=== PATIENT | female | born 1985 | race Caucasian/White ===

== ENCOUNTER 2016-12-29 17:10 | Emergency (ER) | payer OTHER ==
--- NOTE | ~2016-12-29 | CT4 ---
[facility] A Service of [facility] RADIOLOGY TEXT RESULTS PATIENT: BROCK ZABALA LOCATION: [facility] : 81 UNIT #: [id number] AGE: [address]: Sherice Mckeon MD SEX: F ORDER DR: [id number] [facility] [address] [place], [place] [address] [id number] E MR#: [id number] Acc #: [id number] NAME: BROCK ZABALA : 1985 SEX: F STUDY DATE/TIME: 12/29/2016 18:56 UNIT: ANGELA ROOM: STUDY DESCRIPTION: CT Abd and Pelv Wo Cont Attending Physician: Sherice Mckeon M.D. Ordering Physician: Keny Luong M.D. Primary Care Physician: [facility] IMAGING REPORT This report is preliminary unless electronic signature is present EXAM CT abdomen and pelvis without contrast 12/29/2016 1856 hours HISTORY 31-year-old woman with right lower quadrant pain with difficulty urinating and defecating for 5 months since section. COMPARISON CT abdomen and pelvis 02/28/2011 TECHNIQUE Helical noncontrasted images were obtained from the lung bases through the pubic symphysis without oral or intravenous contrast. Sagittal and coronal reconstructions were performed. Total exam DLP 1612 mGy-cm. This CT exam was performed with one or more of the following radiation dose reduction techniques: Automatic exposure control, adjustment of mA and/or kV according to patient size, and iterative reconstruction. FINDINGS Images through the lung bases are clear. There is stable linear scar in the right middle lobe. There are no effusions. Images through the abdomen demonstrate diffuse low attenuation of the liver relative to the spleen consistent with fatty infiltration. The spleen, pancreas, gallbladder, bile ducts, adrenal glands and kidneys are normal. The abdominal aorta is normal in caliber. The stomach is nondistended. There is no gastric wall thickening. The patient has developed marked thinning of the rectus fascia inferior to the umbilicus with infraabdominal panniculus containing multiple loops of small bowel extending inferiorly to the level of the pubic symphysis. There is no true herniation through the rectus fascia. The area of weakening measures up to 8.6 cm cephalocaudad. The surrounded panniculus STS. [facility] A Service of [facility] RADIOLOGY TEXT RESULTS PATIENT: BROCK ZABALA LOCATION: [facility] : 81 UNIT #: [id number] AGE: [address]: Sherice Mckeon MD SEX: F ORDER DR: measures 20.7 cm transverse by 9.7 cm anterior to posterior. There is no bowel obstruction or incarceration. The colon is not involved. There is no colonic distension or increased amount of stool seen. The bladder is distended. The uterus appears normal. The ovaries are normal. There is no free fluid. IMPRESSION As compared to the CT scan of 02/28/2011, the patient has developed an area of marked thinning of the anterior rectus fascia in the infraumbilical region through which a large amount of omental fat and multiple loops of small bowel protrude into an abdominal panniculus measuring up to 20.7 cm transverse by 9.7 cm anterior to posterior by approximately 16.6 cm cephalocaudad. The small bowel loops within this panniculus descend to the level of the pubic symphysis and are most likely palpable in the midline. There is no incarceration, small bowel or colonic wall thickening. No bowel extends into this panniculus and there is no evidence of constipation or distension of the colon. STAT * RESULT Dictated by... Madison Young M.D. THIS IS AN ELECTRONICALLY VERIFIED REPORT Madison Young M.D. at 12/29/2016 9:01 PM TANGELA/jax TD: 12/29/2016 20:00 JOB #: [id number] MEDICAL IMAGING REPORT Page 1 of 1 COPY
[~2016-12-29 17:10] MED LIST: ALBUTEROL17 GM; DEPAKOTE; PROZAC; TOPAMAX
[2016-12-29 17:40] LABS: BASOPHIL% 0.3 % (0-2.5); EOSINOPHIL# 0.1 X10e3 (0-0.7); EOSINOPHIL% 0.8 % (0.0-7.0); HEMATOCRIT 43.1 % (35.0-45.0); HEMOGLOBIN 14.5 gm/dL (12.0-16.0); LYMPHOCYTE# 3.2 X10e3 (1.0-3.5); LYMPHOCYTE% 38.1 % (17.0-45.0); MEAN CELL VOLUME 83.3 FL (83-96); MEAN CORPUSCULAR HGB CONC 33.7 g/dL (30-36); MEAN PLATELET VOLUME 8.4 FL (6.5-11.5); MONOCYTE# 0.5 X10e3 (0-1.0); MONOCYTE% 6.5 % (3.0-12.0); NEUTROPHIL# 4.6 X10e3 (1.5-7.1); NEUTROPHIL% 54.3 % (40-75); PLATELET COUNT 265 X10e3 (140-420); RED BLOOD COUNT 5.18 X10e (3.90-5.30); RED CELL DISTRIBUTION WIDTH 15.2 % (11.0-15.5); WHITE BLOOD COUNT 8.4 X10e3 (4.0-10.5)
[2016-12-29 17:42] LABS: DIFF IND NO
[2016-12-29 18:06] LABS: ALBUMIN SERUM 4.1 g/dL (3.5-5.0); BILIRUBIN, DIRECT 0.1 mg/dL (0.0-0.2); BILIRUBIN,INDIRECT 0.5 mg/dL (0.0-0.9); BILIRUBIN,TOTAL 0.6 mg/dL (0.2-2.0); BUN/CREATININE RATIO 18.57; CALCIUM SERUM 9.1 mg/dL (8.4-10.2); CREATININE SERUM 0.7 mg/dL (0.6-1.4); GLOM FILT RATE Estimated 113.8 mL/min (>60); POTASSIUM 4.5 mmol/L (3.5-5.1); PROTEIN TOTAL SERUM 7.6 g/dL (6.0-8.3)
[2016-12-29 19:53] LABS: URINE SOURCE CLEAN CATCH
[2016-12-29 19:59] LABS: URINE APPEARANCE CLEAR; URINE BILIRUBIN NEG (NEG); URINE BLOOD NEG (NEG); URINE COLOR YELLOW; URINE GLUCOSE >1000 MG/DL (NEG); URINE KETONE TRACE (NEG); URINE LEUKOCYTE ESTERASE NEG (NEG); URINE NITRATE NEG (NEG); URINE PROTEIN NEG (NEG); URINE SPECIFIC GRAVITY 1.046 (1.003-1.035); URINE UROBILINOGEN 0.2 MG/DL (NEG)
[2016-12-29 20:03] LABS: CULTURE INDICATED? NO
== END 2016-12-29 21:54 | disposition home or self-care (01) ==
LOC: CED 17:10
PROVIDERS: Emergency Medicine
DX: R10.31 Right lower quadrant pain (principal); E11.9 Type 2 diabetes mellitus without complications; Z88.0 Allergy status to penicillin; Z88.8 Allergy status to other drugs, medicaments and biological substances
CPT/HCPCS: 36415; 74176; 80048; 80076; 81003; 82150; 83690; 84703; 85025; 96361; 96374; 99284; J0500; J1885

== ENCOUNTER → 2017-01-16 | Outpatient (CLI) | payer OTHER ==
[~2017-01-16] MED LIST changes: +ADVIL200 M1; +BACTRIM DS TAB1 EACH; +HYDROCODON-ACE1 EAC9 PO; +PAIN & FEVER325 MG PO; +PHENERGAN25 M1 PO; +T:SLIM1 EAC1 SQ
--- NOTE | ~2017-01-16 | EKG ---
PATIENT: BROCK ZABALA UNIT #: [id number] Ventricular Rate: 80 BPM Atrial Rate: 80 BPM P-R Interval: 134 ms QRS Duration: 86 ms Q-T Interval: 384 ms QTC Calculation(Bezet): 442 ms P [place]: 58 degrees Calculated R [place]: 43 degrees Calculated T [place]: 38 degrees Diagnosis Line: Normal sinus rhythm Diagnosis Line: Normal ECG Diagnosis Line: When compared with ECG of 02-OCT-2014 08:58, Diagnosis Line: No significant change was found Diagnosis Line: Confirmed by LYNDSAY ACEVEDO MD ([id number]) on Diagnosis Line: 01/17/2017 11:05:14 PM INTERPRETING MD: EVA
[2017-01-16 13:18] LABS: BUN/CREATININE RATIO 18.33; CALCIUM SERUM 9.1 mg/dL (8.4-10.2); CREATININE SERUM 0.6 mg/dL (0.6-1.4); GLOM FILT RATE Estimated 119.8 mL/min (>60); POTASSIUM 4.3 mmol/L (3.5-5.1)
== END | disposition home or self-care (01) ==
LOC: CAMB 10:55
PROVIDERS: Surgery
DX: Z01.818 Encounter for other preprocedural examination (principal); K43.9 Ventral hernia without obstruction or gangrene
CPT/HCPCS: 36415; 80048; 93005

== ENCOUNTER 2017-01-23 05:47 | Inpatient (IN) | payer OTHER ==
--- NOTE | ~2017-01-23 | OR ---
Unit #: [id number] #: [id number] Patient: BROCK ZABALA [id number] [address] [place], [place] [address] [id number] I MR#: [id number] NAME: BROCK ZABALA ROOM: 477 Date of Procedure: 01/23/2017 Admission Date: 01/23/2017 Surgeon: Lawrence Zhang Jr., M.D. : 1985 Attending Physician: Lawrence Zhang Jr., M.D. Referring Physician: Lawrence Zhang Jr., M.D. Primary Care Physician: [facility] OPERATIVE REPORT INDICATIONS FOR PROCEDURE The patient is a 31-year-old obese white female, who has had previous surgery and developed a large lower midline abdominal ventral incisional hernia, which was incarcerated. It has been causing discomfort and she wanted it repaired and is brought in at her request for repair of this laparoscopically, possible open. The patient understands the procedure including the risks, including that of recurrence, infection, chronic pain, and intra-abdominal organ injury, and consents. PREOPERATIVE DIAGNOSIS Large lower midline incarcerated ventral incisional hernia. POSTOPERATIVE DIAGNOSES Large lower midline incarcerated ventral incisional hernia, noting approximately 10 cm defect with incarcerated bowel loops and omentum within it. ANESTHESIA General with endotracheal intubation and 0.5% Marcaine with epinephrine locally. COLLIERY CLERK Lori Perez. PROCEDURES PERFORMED Laparoscopic lysis of adhesions requiring an hour with reduction of her hernia and panniculectomy with removal of the panniculus of her lower abdomen that corresponded to the area of the hernia and laparoscopic ventral hernia repair using an 8 x 10 inch Ventralight mesh. DESCRIPTION OF PROCEDURE The patient was positioned in supine position. After being anesthetized and intubated, she was prepped and draped in routine fashion for laparoscopic ventral hernia repair, possible open. A 5-mm Optiview was introduced in the left upper quadrant abdominal wall area and the camera was then introduced. There was no evidence of any injury related to the introduction of the port. The abdomen was inflated with CO2 gas and intra-abdominal exploration was carried out. The patient was noted to have a 5 bowel loops up within the large hernia with approximately 10 cm defect in the omentum and this area as well. A 5-mm port was placed in the right lower quadrant abdominal wall area and a 5-mm port was placed in the left upper and 12-mm port in the left lower abdominal wall area. At Unit #: [id number] #: [id number] Patient: BROCK ZABALA this point, meticulous dissection was performed, removing the bowel loops from the hernia and lysing omental adhesions with Endo Pam. This was done very carefully and took approximately a 1 hour and 20 minutes. After this was reduced, the area was checked, it was felt that the patient would need an abdominoplasty along with the hernia repair. An elliptical incision was made around the stretched skin in the lower abdomen along the area of the panniculus and this was carried all the way around to the other side, carried down through subcutaneous tissue with the Bovie cautery and down to the attenuated fascia. The hernia sac was then excised with a Bovie cautery and there was a large fascial defect. The small bowel was checked and run and there was no evidence of any small bowel injuries or leaks. After this was complete, the small bowel was reduced back into the abdomen. The abdomen was copiously irrigated with saline solution and the midline was closed with interrupted 0 Ethibond sutures using modified Aníbal-Webster type stitches. The wound was irrigated and after hemostasis achieved with Bovie cautery, a 10 mm Jose-Carrion drain was brought through separate stab wound and placed in the deeper aspect of the wound. Deeper subcutaneous tissue was approximated with continuous 2-0 Vicryl suture. The skin edges were approximated with stainless-steel skin clips and skin stapling device. At this point, the abdomen was reinflated and an 8 x 10 inch Ventralight mesh was tacked in 4 corners, soaked in antibiotic solution, placed intra-abdominally, using the Endo Close technique, it was pulled up against the anterior abdominal wall with excellent coverage of the repaired abdominal wall in the lower midline. It should be noted that the bladder was initially dissected free of the fascia in the area while the abdomen was open. After the mesh was secured with absorbable SecureStrap circumferentially, the sutures holding it up were then lysed. There was excellent coverage of the repair defect and excellent anchoring of the mesh. After hemostasis was checked for and noted intra-abdominally, the ports removed. An 11-mm port site was covered by the mesh, so was not needing repair and the other port sites was very small. After the CO2 was expressed from the abdomen, the ports were removed. There was no evidence of any bleeding from the port sites. The port sites were injected with 0.5% Marcaine with epinephrine locally. At this point, the skin edges were approximated with stainless-steel skin clips and skin stapling device. There was a 10 mm Jose-Carrion drain brought out through the lower abdominal wall at the time of the open procedure. This was tacked to the skin with 0 silk suture. Sterile dressings were applied externally. Estimated blood loss less than 250 mL. The patient received less than 3000 mL crystalloid solution during the procedure. Sponges and instrument counts were correct x3. There was one Jose-Carrion drain used in the subcutaneous tissue noted above and no complications. The patient was taken to the recovery room with stable vital signs in satisfactory condition. Dictated by... Lawrence Zhang Jr., MMariza GRAHAM/jelena TD: 01/23/2017 23:58 JOB #: [id number] Unit #: [id number] #: [id number] Patient: BROCK ZABALA OPERATIVE REPORT Page 1 of 1 X Lawrence Zhang MD X PROCEDURE OPERATIVE NOTE
--- NOTE | ~2017-01-23 | DS ---
Unit #: [id number] #: [id number] Patient: BROCK ZABALA [id number] [address] [place], [place] [address] [id number] I MR#: [id number] NAME: BROCK ZABALA ROOM: 47 Age: 31 Sex: F Admission Date: 01/23/2017 : 1985 Discharge Date: 01/27/2017 Attending Physician: Lawrence Zhang Jr., M.D. Referring Physician: Lawrence Zhang Jr., M.D. Primary Care Physician: [facility] DISCHARGE SUMMARY PRINCIPAL DIAGNOSIS Ventral hernia. OPERATIONS AND PROCEDURES Laparoscopic repair of ventral hernia with panniculectomy. DISCHARGE INSTRUCTIONS 1. No lifting for 4 weeks. 2. No driving for 2 weeks. 3. Keep incision dry for 5 days. 4. Follow with Dr. Zhang on Friday. MEDICATIONS Prescription for Cataumet and Phenergan given. Milk of Magnesia as needed for constipation. DISCHARGE DIET Diet of choice. CONDITION AT DISCHARGE Satisfactory. CHIEF COMPLAINT/HISTORY OF PRESENT ILLNESS Patient is a 31-year-old white female who presented at this time for a ventral hernia. For complete history and physical, please refer to the chart. HOSPITAL COURSE Patient was admitted and taken to the operating room where a laparoscopic ventral hernia repair was performed by Dr. Zhang, followed by a panniculectomy. Over the next several days the patient had her diet slowly advanced and had pain control changed from IV to oral pain medication. She was discharged home in satisfactory condition on postop day number 4 after all instructions were given. She will be followed by Dr. Zhang in the office for drain removal in 2 days. Dictated by... Serjio Monsalve M.D. SEMAJ/jennifer TD: 01/27/2017 08:51 Unit #: [id number] #: [id number] Patient: BROCK ZABALA JOB #: [id number] DISCHARGE SUMMARY Page 1 of 1 X Serjio Monsalve MD X DISCHARGE SUMMARY
[~2017-01-23 05:47] MED LIST changes: -ADVIL200 M1; -BACTRIM DS TAB1 EACH; -HYDROCODON-ACE1 EAC9 PO; -PAIN & FEVER325 MG PO; -PHENERGAN25 M1 PO; -T:SLIM1 EAC1 SQ
[2017-01-23] MEDS ORDERED: BACTRIM DS TAB1 EACH (11:45)
[2017-01-23] MEDS ORDERED: T:SLIM1 EAC1 SQ (11:46)
[2017-01-23] MEDS ORDERED: ADVIL200 M1 (11:47)
[2017-01-24 03:23] LABS: HEMATOCRIT 35.6 % (35.0-45.0); HEMOGLOBIN 11.9 gm/dL (12.0-16.0); MEAN CELL VOLUME 83.9 FL (83-96); MEAN CORPUSCULAR HEMOGLOBIN 27.9 PG (28-34); MEAN CORPUSCULAR HGB CONC 33.3 g/dL (30-36); MEAN PLATELET VOLUME 8.3 FL (6.5-11.5); RED BLOOD COUNT 4.25 X10e (3.90-5.30); RED CELL DISTRIBUTION WIDTH 15.6 % (11.0-15.5); WHITE BLOOD COUNT 11.6 X10e3 (4.0-10.5)
[2017-01-24 03:47] LABS: ALBUMIN SERUM 3.3 g/dL (3.5-5.0); BILIRUBIN,TOTAL 1.2 mg/dL (0.2-2.0); BUN/CREATININE RATIO 18.33; CALCIUM SERUM 8.3 mg/dL (8.4-10.2); CREATININE SERUM 0.6 mg/dL (0.6-1.4); GLOM FILT RATE Estimated 119.8 mL/min (>60); POTASSIUM 4.3 mmol/L (3.5-5.1); PROTEIN TOTAL SERUM 6.2 g/dL (6.0-8.3)
[2017-01-25 03:12] LABS: BASOPHIL% 0.4 % (0-2.5); EOSINOPHIL% 0.2 % (0.0-7.0); HEMATOCRIT 35.7 % (35.0-45.0); HEMOGLOBIN 11.9 gm/dL (12.0-16.0); LYMPHOCYTE# 2.1 X10e3 (1.0-3.5); LYMPHOCYTE% 17.1 % (17.0-45.0); MEAN CELL VOLUME 85.1 FL (83-96); MEAN CORPUSCULAR HEMOGLOBIN 28.4 PG (28-34); MEAN CORPUSCULAR HGB CONC 33.4 g/dL (30-36); MEAN PLATELET VOLUME 8.3 FL (6.5-11.5); MONOCYTE# 0.9 X10e3 (0-1.0); MONOCYTE% 7.2 % (3.0-12.0); NEUTROPHIL% 75.1 % (40-75); PLATELET COUNT 245 X10e3 (140-420); RED BLOOD COUNT 4.19 X10e (3.90-5.30); RED CELL DISTRIBUTION WIDTH 15.4 % (11.0-15.5)
[2017-01-25 03:15] LABS: DIFF IND NO
[2017-01-25 04:02] LABS: ALBUMIN SERUM 3.1 g/dL (3.5-5.0); BILIRUBIN,TOTAL 1.5 mg/dL (0.2-2.0); BUN/CREATININE RATIO 13.33; CALCIUM SERUM 8.2 mg/dL (8.4-10.2); CREATININE SERUM 0.6 mg/dL (0.6-1.4); GLOM FILT RATE Estimated 119.8 mL/min (>60); POTASSIUM 4.3 mmol/L (3.5-5.1); PROTEIN TOTAL SERUM 5.9 g/dL (6.0-8.3)
[2017-01-27 03:17] LABS: EOSINOPHIL# 0.1 X10e3 (0-0.7); EOSINOPHIL% 1.6 % (0.0-7.0); HEMATOCRIT 29.4 % (35.0-45.0); HEMOGLOBIN 9.7 gm/dL (12.0-16.0); LYMPHOCYTE# 1.9 X10e3 (1.0-3.5); LYMPHOCYTE% 22.6 % (17.0-45.0); MEAN CELL VOLUME 86.8 FL (83-96); MEAN CORPUSCULAR HEMOGLOBIN 28.8 PG (28-34); MEAN CORPUSCULAR HGB CONC 33.1 g/dL (30-36); MEAN PLATELET VOLUME 7.5 FL (6.5-11.5); MONOCYTE# 0.8 X10e3 (0-1.0); MONOCYTE% 9.3 % (3.0-12.0); NEUTROPHIL# 5.5 X10e3 (1.5-7.1); NEUTROPHIL% 66.5 % (40-75); PLATELET COUNT 269 X10e3 (140-420); RED BLOOD COUNT 3.39 X10e (3.90-5.30); WHITE BLOOD COUNT 8.3 X10e3 (4.0-10.5)
[2017-01-27 03:19] LABS: DIFF IND NO
[2017-01-27] MEDS ORDERED: PAIN & FEVER325 MG PO (07:27)
[2017-01-27] MEDS ORDERED: HYDROCODON-ACE1 EAC9 PO (07:27)
[2017-01-27] MEDS ORDERED: PHENERGAN25 M1 PO (07:28)
== END 2017-01-27 09:00 | disposition home or self-care (01) | DRG 337 ==
LOC: CSUR 05:47 → C4C 11:35
PROVIDERS: Surgery
PROC: 0WUF4JZ Supplement Abdominal Wall with Synthetic Substitute, Percutaneous Endoscopic Approach (ICD-10-PCS; 2017-01-23)
PROC: 0DNT4ZZ (ICD-10-PCS; principal; 2017-01-23 07:30)
DX: K43.0 Incisional hernia with obstruction, without gangrene (principal); I10 Essential (primary) hypertension; E11.9 Type 2 diabetes mellitus without complications; Z88.0 Allergy status to penicillin; Z88.8 Allergy status to other drugs, medicaments and biological substances; F41.9 Anxiety disorder, unspecified; G40.909 Epilepsy, unspecified, not intractable, without status epilepticus; I25.10 Atherosclerotic heart disease of native coronary artery without angina pectoris; Z95.1 Presence of aortocoronary bypass graft; Z83.3 Family history of diabetes mellitus; Z82.49 Family history of ischemic heart disease and other diseases of the circulatory system; Z81.1 Family history of alcohol abuse and dependence; Z82.5 Family history of asthma and other chronic lower respiratory diseases; Z81.8 Family history of other mental and behavioral disorders; E66.9 Obesity, unspecified; Z68.38 Body mass index [BMI] 38.0-38.9, adult
CPT/HCPCS: 80053; 82947; 84703; 85025; 85027; 88304; 94760; C1781; J0131; J0330; J1170; J1650; J1815; J2250; J2270; J2405; J2550; J2710; J3010; J3370

== ENCOUNTER 2017-01-28 19:54 | Emergency (ER) | payer OTHER ==
[~2017-01-28 19:54] MED LIST changes: +ADVIL200 M1; +BACTRIM DS TAB1 EACH; +HYDROCODON-ACE1 EAC9 PO; +PAIN & FEVER325 MG PO; +PHENERGAN25 M1 PO; +T:SLIM1 EAC1 SQ
[2017-01-28 22:27] LABS: BASOPHIL% 0.5 % (0-2.5); EOSINOPHIL# 0.1 X10e3 (0-0.7); EOSINOPHIL% 1.6 % (0.0-7.0); HEMATOCRIT 30.9 % (35.0-45.0); HEMOGLOBIN 10.1 gm/dL (12.0-16.0); LYMPHOCYTE# 1.7 X10e3 (1.0-3.5); LYMPHOCYTE% 20.6 % (17.0-45.0); MEAN CELL VOLUME 87.2 FL (83-96); MEAN CORPUSCULAR HEMOGLOBIN 28.4 PG (28-34); MEAN CORPUSCULAR HGB CONC 32.6 g/dL (30-36); MEAN PLATELET VOLUME 7.2 FL (6.5-11.5); MONOCYTE# 0.6 X10e3 (0-1.0); MONOCYTE% 7.5 % (3.0-12.0); NEUTROPHIL# 5.9 X10e3 (1.5-7.1); NEUTROPHIL% 69.8 % (40-75); PLATELET COUNT 299 X10e3 (140-420); RED BLOOD COUNT 3.54 X10e (3.90-5.30); RED CELL DISTRIBUTION WIDTH 15.5 % (11.0-15.5); WHITE BLOOD COUNT 8.5 X10e3 (4.0-10.5)
[2017-01-28 22:31] LABS: DIFF IND NO
[2017-01-28 22:49] LABS: BUN/CREATININE RATIO 23.33; CALCIUM SERUM 8.8 mg/dL (8.4-10.2); CREATININE SERUM 0.3 mg/dL (0.6-1.4); GLOM FILT RATE Estimated 150.5 mL/min (>60); POTASSIUM 3.8 mmol/L (3.5-5.1)
[2017-01-29 00:58] LABS: URINE SOURCE CLEAN CATCH
[2017-01-29 01:04] LABS: URINE APPEARANCE CLEAR; URINE BILIRUBIN NEG (NEG); URINE BLOOD NEG (NEG); URINE COLOR YELLOW; URINE GLUCOSE >1000 MG/DL (NEG); URINE KETONE 3+ (NEG); URINE LEUKOCYTE ESTERASE TRACE (NEG); URINE NITRATE NEG (NEG); URINE PROTEIN NEG (NEG); URINE SPECIFIC GRAVITY 1.042 (1.003-1.035)
[2017-01-29 01:08] LABS: CULTURE INDICATED? YES; URINE BACTERIA AUWI 2+ (NEGATIVE); URINE SQUAMOUS EPITHELIAL CELL OCC /[HPF]; UWBCS1 AUWI 50-100 (0-5)
== END 2017-01-29 01:55 | disposition home or self-care (01) ==
LOC: CED 19:54
PROVIDERS: Emergency Medicine
DX: N30.00 Acute cystitis without hematuria (principal); G89.18 Other acute postprocedural pain; F32.9 Major depressive disorder, single episode, unspecified; Z98.890 Other specified postprocedural states
CPT/HCPCS: 36415; 80048; 81003; 85025; 87086; 96361; 96374; 96375; 99284; J2270; J2405

== ENCOUNTER 2017-01-29 22:30 | Emergency (ER) | payer OTHER ==
--- NOTE | ~2017-01-29 | EKG ---
PATIENT: BROCK ZABALA UNIT #: [id number] Ventricular Rate: 110 BPM Atrial Rate: 110 BPM P-R Interval: 124 ms QRS Duration: 82 ms Q-T Interval: 354 ms QTC Calculation(Bezet): 479 ms P [place]: 63 degrees Calculated R [place]: 39 degrees Calculated T Edgar: 41 degrees Diagnosis Line: Sinus tachycardia Diagnosis Line: Otherwise normal ECG Diagnosis Line: No previous ECGs available Diagnosis Line: Confirmed by ELIESER SCHUSTER MD ([id number]) on 01/30/2017 Diagnosis Line: 10:04:15 AM INTERPRETING MD: LANDEN WOLFE
[2017-01-30 00:54] LABS: URINE SOURCE CLEAN CATCH
[2017-01-30 00:58] LABS: URINE APPEARANCE CLEAR; URINE BILIRUBIN NEG (NEG); URINE BLOOD 3+ (NEG); URINE COLOR YELLOW; URINE GLUCOSE >1000 MG/DL (NEG); URINE KETONE 3+ (NEG); URINE LEUKOCYTE ESTERASE NEG (NEG); URINE NITRATE NEG (NEG); URINE PROTEIN NEG (NEG); URINE SPECIFIC GRAVITY 1.043 (1.003-1.035)
[2017-01-30 01:02] LABS: CULTURE INDICATED? YES; URINE BACTERIA AUWI 2+ (NEGATIVE); URINE SQUAMOUS EPITHELIAL CELL FEW /[HPF]
[2017-01-30 01:11] LABS: BASOPHIL% 0.2 % (0-2.5); EOSINOPHIL# 0.1 X10e3 (0-0.7); EOSINOPHIL% 1.5 % (0.0-7.0); HEMATOCRIT 29.1 % (35.0-45.0); HEMOGLOBIN 9.7 gm/dL (12.0-16.0); LYMPHOCYTE# 1.9 X10e3 (1.0-3.5); LYMPHOCYTE% 25.3 % (17.0-45.0); MEAN CELL VOLUME 86.7 FL (83-96); MEAN CORPUSCULAR HEMOGLOBIN 28.9 PG (28-34); MEAN CORPUSCULAR HGB CONC 33.4 g/dL (30-36); MEAN PLATELET VOLUME 7.4 FL (6.5-11.5); MONOCYTE# 0.6 X10e3 (0-1.0); MONOCYTE% 8.4 % (3.0-12.0); NEUTROPHIL# 4.9 X10e3 (1.5-7.1); NEUTROPHIL% 64.6 % (40-75); PLATELET COUNT 302 X10e3 (140-420); RED BLOOD COUNT 3.36 X10e (3.90-5.30); RED CELL DISTRIBUTION WIDTH 15.6 % (11.0-15.5); WHITE BLOOD COUNT 7.6 X10e3 (4.0-10.5)
[2017-01-30 01:13] LABS: DIFF IND NO
[2017-01-30 01:30] LABS: ALBUMIN SERUM 2.8 g/dL (3.5-5.0); BILIRUBIN, DIRECT 0.1 mg/dL (0.0-0.2); BILIRUBIN,INDIRECT 0.5 mg/dL (0.0-0.9); BILIRUBIN,TOTAL 0.6 mg/dL (0.2-2.0); CALCIUM SERUM 8.7 mg/dL (8.4-10.2); CREATININE SERUM 0.5 mg/dL (0.6-1.4); GLOM FILT RATE Estimated 127.2 mL/min (>60); POTASSIUM 3.7 mmol/L (3.5-5.1); PROTEIN TOTAL SERUM 6.3 g/dL (6.0-8.3)
== END 2017-01-30 02:20 | disposition home or self-care (01) ==
LOC: CED 22:30
PROVIDERS: Emergency Medicine
DX: N30.00 Acute cystitis without hematuria (principal); G89.18 Other acute postprocedural pain; R10.9 Unspecified abdominal pain; E11.9 Type 2 diabetes mellitus without complications; F41.9 Anxiety disorder, unspecified; Z79.4 Long term (current) use of insulin
CPT/HCPCS: 36415; 80048; 80076; 81003; 82150; 83690; 84703; 85025; 87086; 93005; 96372; 99283; J2270; J2405

== ENCOUNTER 2017-02-12 10:30 | Emergency (ER) | payer OTHER | END 2017-02-12 12:06 | disposition home or self-care (01) | LOC: CED 10:30 | DX: T81.31XA Disruption of external operation (surgical) wound, not elsewhere classified, initial encounter (principal); E11.9 Type 2 diabetes mellitus without complications; Z88.0 Allergy status to penicillin; Z88.8 Allergy status to other drugs, medicaments and biological substances; Z79.4 Long term (current) use of insulin | CPT/HCPCS: 99282 ==

== ENCOUNTER 2017-03-25 17:53 | Emergency (ER) | payer OTHER ==
--- NOTE | ~2017-03-25 | CT2 ---
[facility] A Service of [facility] RADIOLOGY TEXT RESULTS PATIENT: BROCK ZABALA LOCATION: [facility] : 83 UNIT #: [id number] AGE: [address]: Don Villalobos MD SEX: F ORDER DR: [id number] [facility] [address] [place], [place] [address] [id number] E MR#: [id number] Acc #: [id number] NAME: BROCK ZABALA : 1985 SEX: F STUDY DATE/TIME: 03/25/2017 21:17 UNIT: [facility] ROOM: STUDY DESCRIPTION: CT Abd and Pelv W Cont Attending Physician: Don Villalobos M.D. Ordering Physician: Don Villalobos M.D. Primary Care Physician: [facility] IMAGING REPORT This report is preliminary unless electronic signature is present EXAM Abdomen and pelvis CT scan with contrast HISTORY Right flank pain since hernia surgery 7 months ago, worse today. History of seizure disorder, diabetes, cholecystectomy, hernia repair, section. COMMENT CT abdomen and pelvis performed following oral and during the intravenous administration of 100 mL of Isovue-370. Imaging acquired in the axial plane followed by sagittal and coronal reconstructed imaging. This CT exam was performed with one or more of the following radiation dose reduction techniques: automatic exposure control, adjustment of mA and/or kV according to patient size, and iterative reconstruction. Comparison studies from 12/29/2016. There is apparently interval surgery to a hernia to the lower anterior abdominal pelvic wall. The lung bases are clear. There is extensive fatty infiltration of the liver with hepatomegaly and the liver enlargement is probably increased from the examination of 12/29/2016, now about 25 cm in SI dimension. There is some splenic granulomata. The adrenal glands are normal. There is unremarkable appearance to the gallbladder. History provided indicates cholecystectomy but the gallbladder is present. Pancreas is unremarkable. Right kidney and left kidney are within normal limits. There is no abdominal aortic aneurysm. Assessment of the pelvis shows unremarkable appearance to the urinary [facility] A Service of [facility] RADIOLOGY TEXT RESULTS PATIENT: [facility]AL[id number] [birth year] UNIT #: [id number] AGE: [address]: Don Villalobos MD SEX: F ORDER DR: hawa. The adnexa are large bilaterally. Please correlate for any clinical concern for polycystic ovarian disease. This diagnosis would be better pursued with a pelvic ultrasound on a nonemergent basis. There is no free fluid in the pelvis. The appendix is radiographically unremarkable with some contrast and air within it up to about 6 mm in diameter. As noted above there has been interval repair of the known hernia. There is now stranding in the anterior abdominal wall to pelvic fat at the site or surgical repair. No drainable fluid collection is appreciated. The findings could all be postoperative but please correlate for clinical concern for cellulitic change. There does appear to be some overlying skin thickening and this is in the differential. No air bubbles are seen in the soft tissues. There is a small amount of dehiscence of the midline rectus repair at the level of the pelvis with a small amount of fat protruding through it in a right paramedian location. There are no bowel loops within this area. No drainable fluid collection is seen. Nothing to suggest bowel obstruction. No free intraperitoneal air. IMPRESSION 1. Since the study of 12/29/2016 this patient has had repair of a large hernia involving the anterior inferior abdominopelvic wall. There is now soft tissue stranding in the subcutaneous fat and thickening of the overlying skin. This could be postoperative change depending upon how recently the surgery was performed but please evaluate for clinical concern for cellulitis. I do not see evidence for a drainable fluid collection. There is minimal dehiscence right paramedian rectus musculature with fat protruding through it at the lower aspect of the hernia repair. There is no bowel protruding into this. There is no evidence for bowel obstruction. 2. This patient has fatty infiltration of the liver diffusely with hepatomegaly and I believe there is some worsening of hepatomegaly mildly since December. 3. The gallbladder is unremarkable. The patient history given to me is that of cholecystectomy but gallbladder is still present. 4. The appendix is radiographically unremarkable. 5. Bilaterally adnexa are large. This is nonspecific but the possible consideration would be polycystic ovary syndrome. This diagnosis is best pursued with nonemergent pelvic ultrasound. STAT * RESULT Dictated by... Amy Cordon M.D. THIS IS AN ELECTRONICALLY VERIFIED REPORT Amy Cordon M.D. at 03/26/2017 7:52 AM [facility] A Service of [facility] RADIOLOGY TEXT RESULTS PATIENT: BROCK ZABALA [id number] [birth year] UNIT #: [id number] AGE: [address]: Don Villalobos MD SEX: F ORDER DR: HELEN/guerline TD: 03/25/2017 22:05 JOB #: [id number] MEDICAL IMAGING REPORT Page 1 of 1 COPY
[2017-03-25 19:16] LABS: BASOPHIL% 0.3 % (0-2.5); EOSINOPHIL# 0.2 X10e3 (0-0.7); EOSINOPHIL% 1.9 % (0.0-7.0); HEMATOCRIT 39.8 % (35.0-45.0); LYMPHOCYTE# 2.9 X10e3 (1.0-3.5); LYMPHOCYTE% 33.2 % (17.0-45.0); MEAN CORPUSCULAR HEMOGLOBIN 27.1 PG (28-34); MEAN CORPUSCULAR HGB CONC 32.7 g/dL (30-36); MEAN PLATELET VOLUME 8.4 FL (6.5-11.5); MONOCYTE# 0.4 X10e3 (0-1.0); NEUTROPHIL# 5.2 X10e3 (1.5-7.1); NEUTROPHIL% 59.6 % (40-75); PLATELET COUNT 300 X10e3 (140-420); RED BLOOD COUNT 4.79 X10e (3.90-5.30); WHITE BLOOD COUNT 8.7 X10e3 (4.0-10.5)
[2017-03-25 19:24] LABS: DIFF IND NO
[2017-03-25 19:27] LABS: URINE SOURCE CLEAN CATCH
[2017-03-25 19:32] LABS: URINE APPEARANCE CLEAR; URINE BILIRUBIN NEG (NEG); URINE BLOOD NEG (NEG); URINE COLOR YELLOW; URINE GLUCOSE >1000 MG/DL (NEG); URINE KETONE 1+ (NEG); URINE LEUKOCYTE ESTERASE NEG (NEG); URINE NITRATE NEG (NEG); URINE PROTEIN NEG (NEG); URINE SPECIFIC GRAVITY 1.044 (1.003-1.035); URINE UROBILINOGEN 0.2 MG/DL (NEG)
[2017-03-25 19:37] LABS: CALCIUM SERUM 8.9 mg/dL (8.4-10.2); CREATININE SERUM 0.5 mg/dL (0.6-1.4); GLOM FILT RATE Estimated 127.2 mL/min (>60); POTASSIUM 4.1 mmol/L (3.5-5.1)
== END 2017-03-25 22:25 | disposition home or self-care (01) ==
LOC: CED 17:53
PROVIDERS: Emergency Medicine
DX: R10.12 Left upper quadrant pain (principal); E11.65 Type 2 diabetes mellitus with hyperglycemia; Z79.4 Long term (current) use of insulin; Z88.0 Allergy status to penicillin; Z88.8 Allergy status to other drugs, medicaments and biological substances; Z79.899 Other long term (current) drug therapy
CPT/HCPCS: 36415; 74177; 80048; 81003; 82947; 84703; 85025; 96361; 96374; 96375; 99284; J2405; Q9967

== ENCOUNTER 2017-06-10 19:50 | Emergency (ER) | payer OTHER ==
[~2017-06-10] VITALS: Ht 157.5 cm; Wt 90.7 kg
--- NOTE | ~2017-06-10 | CT2 ---
[facility] A Service of [facility] RADIOLOGY TEXT RESULTS PATIENT: BROCK ZABALA LOCATION: [facility] : 81 UNIT #: [id number] AGE: [address]: Sidney Robison MD SEX: F ORDER DR: [id number] [facility] [address] [place], [place] [address] [id number] E MR#: [id number] Acc #: [id number] NAME: BROCK ZABALA : 1985 SEX: F STUDY DATE/TIME: 06/10/2017 22:26 UNIT: [facility] ROOM: STUDY DESCRIPTION: CT Abd and Pelv W Cont Attending Physician: Sidney Robison M.D. Ordering Physician: Sidney Robison M.D. Primary Care Physician: Colette Adam [facility] IMAGING REPORT This report is preliminary unless electronic signature is present EXAM CT scan of the abdomen and pelvis with contrast, 06/10/2017 HISTORY Abdomen pain, nausea, vomiting and diarrhea for 2 days. Left lower quadrant abdominal pain. TECHNIQUE Spiral CT was performed through the abdomen and pelvis following intravenous contrast administration only as per clinician request. This CT exam was performed with one or more of the following radiation dose reduction techniques: automatic exposure control, adjustment of mA and/or kV according to patient size, and iterative reconstruction. FINDINGS ABDOMEN: The exam is limited by the lack of oral contrast. There is diffuse fatty infiltration of the liver. The spleen, pancreas, gallbladder and biliary tree, adrenal glands and kidneys are normal. PELVIS: The gut, mesenteric and kelly structures are normal. There is no free fluid in the abdomen or pelvis. There are postsurgical changes involving the lower anterior abdominal wall. The lung bases are normal. IMPRESSION 1. Exam is limited by the lack of oral contrast. 2. Fatty infiltration of the liver. 3. Postoperative changes involving the lower anterior abdominal wall. Dictated by... Sarthak Santos M.D. THIS IS AN ELECTRONICALLY VERIFIED REPORT [facility] A Service of [facility] RADIOLOGY TEXT RESULTS PATIENT: BROCK ZABALA [id number] [birth year] UNIT #: [id number] AGE: [address]: Sidney Robison MD SEX: F ORDER DR: Sarthak Santos M.D. at 06/11/2017 10:41 AM URIAH/kris TD: 06/11/2017 08:24 JOB #: [id number] MEDICAL IMAGING REPORT Page 1 of 1 COPY
[2017-06-10 20:10] LABS: URINE SOURCE CLEAN CATCH
[2017-06-10 20:16] LABS: BASOPHIL# 0.1 X10e3 (0-0.3); BASOPHIL% 0.6 % (0-2.5); EOSINOPHIL# 0.1 X10e3 (0-0.7); EOSINOPHIL% 1.1 % (0.0-7.0); HEMATOCRIT 40.7 % (35.0-45.0); HEMOGLOBIN 13.7 gm/dL (12.0-16.0); LYMPHOCYTE% 31.7 % (17.0-45.0); MEAN CELL VOLUME 82.7 FL (83-96); MEAN CORPUSCULAR HEMOGLOBIN 27.9 PG (28-34); MEAN CORPUSCULAR HGB CONC 33.8 g/dL (30-36); MEAN PLATELET VOLUME 8.1 FL (6.5-11.5); MONOCYTE# 0.5 X10e3 (0-1.0); NEUTROPHIL# 5.8 X10e3 (1.5-7.1); NEUTROPHIL% 61.6 % (40-75); PLATELET COUNT 265 X10e3 (140-420); RED BLOOD COUNT 4.92 X10e (3.90-5.30); RED CELL DISTRIBUTION WIDTH 16.7 % (11.0-15.5); URINE APPEARANCE CLOUDY; URINE BILIRUBIN NEG (NEG); URINE BLOOD 2+ (NEG); URINE COLOR YELLOW; URINE GLUCOSE >1000 MG/DL (NEG); URINE KETONE 1+ (NEG); URINE LEUKOCYTE ESTERASE NEG (NEG); URINE NITRATE NEG (NEG); URINE PH 5.5 (5-8); URINE PROTEIN NEG (NEG); URINE SPECIFIC GRAVITY 1.046 (1.003-1.035); URINE UROBILINOGEN 0.2 MG/DL (NEG); WHITE BLOOD COUNT 9.4 X10e3 (4.0-10.5)
[2017-06-10 20:18] LABS: CULTURE INDICATED? YES; U HYALINE CASTS AUWI 0-2 /[LPF]; URBCS1 AUWI 0-2 /[HPF] (0-2); URINE BACTERIA AUWI 2+ (NEGATIVE); URINE SQUAMOUS EPITHELIAL CELL FEW /[HPF]; UWBCS1 AUWI 25-50 (0-5)
[2017-06-10 20:31] LABS: DIFF IND NO
[2017-06-10 20:54] LABS: ALBUMIN SERUM 3.8 g/dL (3.5-5.0); BILIRUBIN, DIRECT 0.1 mg/dL (0.0-0.2); BILIRUBIN,INDIRECT 0.6 mg/dL (0.0-0.9); BILIRUBIN,TOTAL 0.7 mg/dL (0.2-2.0); CALCIUM SERUM 9.3 mg/dL (8.4-10.2); CREATININE SERUM 0.6 mg/dL (0.6-1.4); GLOM FILT RATE Estimated 119.8 mL/min (>60); POTASSIUM 3.8 mmol/L (3.5-5.1)
== END 2017-06-10 23:40 | disposition home or self-care (01) ==
LOC: CED 19:50
DX: N39.0 Urinary tract infection, site not specified (principal); R19.7 Diarrhea, unspecified; F41.9 Anxiety disorder, unspecified; E11.9 Type 2 diabetes mellitus without complications; Z88.0 Allergy status to penicillin; Z88.8 Allergy status to other drugs, medicaments and biological substances; Z79.4 Long term (current) use of insulin; Z79.899 Other long term (current) drug therapy
CPT/HCPCS: 36415; 74177; 80048; 80076; 81003; 82947; 83690; 84703; 85025; 87086; 96361; 96374; 96375; 99284; J1885; J2405; Q9967